=== PATIENT | male | born 1955 | race Caucasian/White ===

== ENCOUNTER 2020-07-24 09:50 | Outpatient (REF) | payer BC, SELFPAY ==
[2020-07-24 10:43] LABS: COVID-19 Test Negative (Negative)
== END 2020-07-24 09:51 | disposition home or self-care (01) ==
LOC: HO.LAB 09:50
PROVIDERS: PCP Internal Medicine; Visit Provider Internal Medicine
DX: Z20.828 Contact with and (suspected) exposure to other viral communicable diseases (principal)
CPT/HCPCS: 87635

== ENCOUNTER 2020-07-29 08:04 | Outpatient (REF) | payer BC, SELFPAY ==
[2020-07-29 08:21] LABS: COVID-19 Test Negative (Negative)
== END 2020-07-29 08:05 | disposition home or self-care (01) ==
LOC: HO.LAB 08:04
PROVIDERS: Visit Provider Internal Medicine
DX: Z20.828 Contact with and (suspected) exposure to other viral communicable diseases (principal)
CPT/HCPCS: 87635

== ENCOUNTER 2022-08-06 10:56 | Outpatient (REF) | payer OTHER, SELFPAY ==
[2022-08-06 11:20] LABS: MANUAL DIFF FLAG NO
[2022-08-06 11:45] LABS: Basophils Absolute Auto 0.1 X10*3/uL (0.0-0.2); Eosinophils Absolute Auto 0.1 X10*3/uL (0.0-0.4); Eosinophils Percent Auto 1.7 % (0-4); Hematocrit 42.1 % (42.0-52.0); Hemoglobin 14.8 g/dl (14.0-18.0); Imm Gran Abs Auto 0.02 X10*3/uL (0.00-0.03); Imm Gran Pct Auto 0.3 % (0.0-0.4); Lymphocytes Absolute Auto 1.6 X10*3/uL (1.2-4.9); Lymphocytes Percent Auto 26.6 % (20-40); Mean Corpuscular HGB Conc 35.2 g/dl (31.0-36.0); Mean Corpuscular Hemoglobin 30.6 pg (27.0-33.0); Mean Platelet Volume 10.8 fL (9.4-12.4); Monocytes Absolute Auto 0.5 X10*3/uL (0.1-1.2); Monocytes Percent Auto 8.1 % (2-11); Neutrophils Absolute Auto 3.8 x10*3/uL (2.0-8.3); Neutrophils Percent Auto 62.3 % (45-73); Platelet Count 268 X10*3/uL (160-400); Red Blood Count 4.84 X10*6/uL (4.60-5.80); Red Cell Distribution Width 12.7 % (11.0-16.0); White Blood Count 6.1 X10*3/uL (4.8-10.8)
[2022-08-06 12:43] LABS: Free T4 (Free Thyroxine) 0.88 ng/dL (0.71-1.85); Prostate Specific Antigen 1.49 ng/mL (<0.05-4.0)
[2022-08-06 12:58] LABS: Alanine Aminotransferase 36 U/L (0-40); Albumin Level 4.5 g/dL (3.5-5.0); Alkaline Phosphatase 62 U/L (39-117); Anion Gap 17 (12-20); Aspartate Amino Transferase 32 U/L (5-37); Bilirubin Total 0.6 mg/dL (0.0-1.0); Blood Urea Nitrogen 19 mg/dL (9-16); Calcium 9.8 mg/dL (8.4-10.2); Carbon Dioxide 21 mmol/L (22-29); Chloride 105 mmol/L (96-108); Cholesterol 186 mg/dL; Estimated Glomerular Filt Rate 56; Glucose Random 97 mg/dL (60-115); HDL Cholesterol 61 mg/dL; LDL Cholesterol Calculated 108 mg/dl; Potassium 4.3 mmol/L (3.3-5.1); Sodium 139 mmol/L (135-145); Total Protein 7.2 g/dL (6.5-8.0); Triglycerides 87 mg/dL
[2022-08-09 05:02] LABS: ~HepC Num1 0.13 S/CO (0.00-0.79); ~Hepatitis C Antibody Nonreactive (Nonreactive)
[2022-08-13 13:43] LABS: Chromogranin A 159 ng/mL (ADULTS: <311)
== END 2022-08-06 10:57 | disposition home or self-care (01) ==
LOC: HO.LAB 10:56
PROVIDERS: PCP Internal Medicine; Visit Provider Internal Medicine
DX: F90.9 Attention-deficit hyperactivity disorder, unspecified type (principal); R97.20 Elevated prostate specific antigen [PSA]; E74.39 Other disorders of intestinal carbohydrate absorption; E78.00 Pure hypercholesterolemia, unspecified; C17.9 Malignant neoplasm of small intestine, unspecified; Z12.5 Encounter for screening for malignant neoplasm of prostate
CPT/HCPCS: 36415; 80053; 80061; 84153; 84439; 84443; 85025; 86316; 86803

== ENCOUNTER 2022-11-24 09:00 | Outpatient (RCR) | payer OTHER, SELFPAY | END 2022-12-29 15:10 | disposition home or self-care (01) | LOC: HO.PT 09:00 | PROVIDERS: PCP Internal Medicine; Visit Provider Internal Medicine | DX: M25.512 Pain in left shoulder (principal) | CPT/HCPCS: 97033; 97110; 97112; 97140; 97162; 97530 ==

== ENCOUNTER 2022-12-02 16:54 | Outpatient (REF) | payer OTHER, SELFPAY ==
[2022-12-02 18:14] LABS: Appearance Urine Clear; Color Urine Yellow; Glucose Urine UA Negative (Negative); Leukocyte Esterase Urine Negative (Negative); Nitrite Urine Negative (Negative); Urine Blood Negative (Negative); Urine Ketones Negative (Negative); Urine Protein Negative (Neg-Trace)
[2022-12-02 18:35] LABS: Creatinine Urine 41.65 mg/dL; Microalbumin Urine < 5.0 mg/L; Total Protein Urine Random < 7 mg/dL (<12)
== END 2022-12-02 16:55 | disposition home or self-care (01) ==
LOC: HO.LAB 16:54
PROVIDERS: PCP Internal Medicine; Visit Provider Internal Medicine
DX: R79.89 Other specified abnormal findings of blood chemistry (principal)
CPT/HCPCS: 81003; 82043; 84156

== ENCOUNTER 2023-01-15 10:52 | Outpatient (REF) | payer OTHER, SELFPAY ==
[2023-01-19 14:53] LABS: Venous Lead <1.0 mcg/dL (<3.5)
== END 2023-01-15 10:53 | disposition home or self-care (01) ==
LOC: HO.LAB 10:52
PROVIDERS: Visit Provider Internal Medicine
DX: R53.83 Other fatigue (principal)
CPT/HCPCS: 82300; 83655

== ENCOUNTER 2023-03-25 15:25 | Outpatient (REF) | payer OTHER, SELFPAY ==
--- NOTE | ~2023-03-25 | US_ITS ---
EXAMINATION: US VENOUS ULTRASOUND WITH DOPPLER LOWER EXTREMITY, RIGHT CLINICAL INFORMATION: Right lower extremity edema pain and swelling COMPARISON: None available. TECHNIQUE: Ultrasound of the deep veins is performed from the hip to the calf with compression sonography and color and pulse Doppler assessment. Spectral analysis with color-flow imaging is performed. FINDINGS: There is normal venous compression and respiratory variation and augmented flow. The visualized common femoral vein, superficial femoral vein, profunda femoral vein, popliteal vein, and the trifurcation region shows no evidence of deep venous thrombosis. There is no significant popliteal fossa cyst. The contralateral left common femoral vein appears normal. If the patient's symptoms persist, followup ultrasound in 5 days 7 days might be of value to exclude proximal propagation from a non-visualized calf vein. US/US venous duplex LE RT IMPRESSION: No DVT demonstrated in the right lower extremity.
== END 2023-03-25 15:26 | disposition home or self-care (01) ==
LOC: HO.US 15:25
PROVIDERS: PCP Internal Medicine; Visit Provider Internal Medicine
DX: R60.0 Localized edema (principal)
CPT/HCPCS: 93971

== ENCOUNTER 2023-05-12 11:16 | Emergency (ER) | payer OTHER, SELFPAY ==
--- NOTE | ~2023-05-12 | XR_ITS ---
PROCEDURE: Bilateral hand x-rays. CLINICAL HISTORY: Right hand third digit and left hand fourth digit trauma TECHNIQUE: Frontal, lateral and oblique radiograph's were acquired. FINDINGS: Frontal, lateral and oblique radiographs of the right hand show no fracture, dislocation or foreign body. In particular, the third digit is intact. Frontal, lateral and oblique radiographs of the left hand show no plain film osseous, articular or soft tissue abnormalities. In particular, the left fourth finger is intact. XR/XR hand LT min 3V IMPRESSION: Unremarkable plain radiographs of both hands. In particular, no fracture, dislocation or foreign body is detected.
--- NOTE | ~2023-05-12 | XR_ITS ---
PROCEDURE: Bilateral hand x-rays. CLINICAL HISTORY: Right hand third digit and left hand fourth digit trauma TECHNIQUE: Frontal, lateral and oblique radiograph's were acquired. FINDINGS: Frontal, lateral and oblique radiographs of the right hand show no fracture, dislocation or foreign body. In particular, the third digit is intact. Frontal, lateral and oblique radiographs of the left hand show no plain film osseous, articular or soft tissue abnormalities. In particular, the left fourth finger is intact. XR/XR hand RT min 3V IMPRESSION: Unremarkable plain radiographs of both hands. In particular, no fracture, dislocation or foreign body is detected.
--- NOTE | 2023-05-12 11:39 | ED_ITS ---
HPI - General Adult General Chief complaint: Extremity Injury, Upper Stated complaint: fall ? 2 fractured fingers Time Seen by Provider: 05/12/23 11:20 Source: patient Mode of arrival: ambulatory Limitations: no limitations History of Present Illness HPI narrative: This is a 67-year-old male without significant medical history presenting to the emergency department for complaints of left 4th finger pain and right 3rd finger pain status post trip and fall yesterday while running, patient reports he ran, tripped, fell on both hands, did not hit his head, chest, abdomen or pelvis. Patient not on blood thinners. No loss of consciousness. He reports pain and swelling ever since. Worse with movement better at rest. No previous injuries to these fingers. Patient not on blood thinners. Related Data Previous Rx's Medication Instructions Recorded cephalexin 500 mg tablet 500 mg PO Q6H 10 days #40 tabs 05/12/23 Allergies Allergy/AdvReac Type Severity Reaction Status Date / Time No Known Allergies Allergy Verified 05/12/23 12:32 [No Known Allergies*] Review of Systems Review of Systems: Constitutional : No Weight loss, No Fever, No Chills, No Fatigue, No Malaise ENT/Mouth : No sore throat, No Rhinorrhea Eyes: No Eye Pain, No Swelling, No Redness Cardiovascular : No Chest Pain, No SOB, No Dyspnea on Exertion, No Orthopnea, No Edema, No Palpitations Respiratory : No Cough, No Sputum, No Wheezing Gastrointestinal : No Nausea, No Vomiting, No Diarrhea, No Constipation, No abdominal Pain, No Hematochezia, No Melena Genitourinary : No Dysuria, No Urinary Frequency, No Hematuria, Musculoskeletal : + joint pain, No Myalgias, + Joint Swelling Skin : No Skin Lesions, No rash Neuro : No Weakness, No Numbness, No Dizziness, No Headache Psych : No Anxiety/Panic, No Depression All other systems reviewed and are negative Yes all other systems are reviewed and are negative [facility] Past Medical History Attestation statement: The following information was validated with the patient. Source: old records reviewed and nursing notes reviewed Social History Social History Advance Directives: No Physical Exam ED Vital Signs: Vital Signs - 24 hr 05/12/23 11:46 Temperature 98 F Pulse Rate 80 Respiratory Rate 16 Blood Pressure 125/79 Pulse Oximetry 97 Oxygen Delivery Method Room Air BMI result Body Mass Index 25.4 Vital signs stable Appearance: Alert.? Oriented X3.? No acute distress.? Head: Normocephalic, atraumatic, no step-offs or deformities Eyes: Pupils equal, round and reactive to light.? ENT: Pharynx normal.? Neck: Normal inspection.? Neck supple.? CVS: Normal heart rate and rhythm.? Pulses normal.? Respiratory: No respiratory distress.? Breath sounds normal.? Abdomen: Soft and nontender.? Skin: Skin warm and dry.? Normal skin color.? Normal skin turgor.? Extremities 5/5 strength to bilateral upper and lower extremities full range of motion to all fingers, slight discomfort with range of motion of left 4th finger and right 3rd finger, right 3rd finger with significant edema, erythema and ecchymosis. patient's right 3rd nail bed with what appears to be some separation from skin and dry blood underneath. 2+ radial pulses equal bilateral. Capillary refill less than 2 seconds to bilateral upper extremity digits. Nor mal sensation distally. No hand drop/wrist drop. Neuro: Oriented X 3.? No motor deficit.? No sensory deficit. CN 2-12 intact Course Reevaluation(s) Reevaluation #1: X-ray unremarkable no fractures or dislocations, concern for ligamentous or tendon injury flexor tendon. Will place in a finger splint To right 3rd digit. [place] text to Dr. Cohen to make her aware of this case. Likely follow-up outpatient with hand surgeon. Patient aware of findings. Time: 13:14 Reevaluation #2: Ortho MARYANN martinez recommends encouraged ROM Time: 13:47 Reevaluation #3: Still pending response from Dr. Cohen, will reach out to patient with her response. Educated patient on diagnosis and treatment plan, answered all question, patient verbalizes understanding. At this time patient will be discharged home, advised to return with new or worsening symptoms. Educated on worrisome signs and symptoms and when to return. At this time I feel comfortab le discharge home. Medical Decision Making Medical Decision Making [facility] Narrative: [id number] 67-year-old male presents status post fall last night complaining of left and right finger pain. Physical exam significant for 5/5 strength to bilateral upper and lower extremities full range of motion to all fingers, slight discomfort with range of motion of left 4th finger and right 3rd finger, right 3rd finger with significant edema, erythema and ecchymosis. 2+ radial pulses equal bilateral. Capillary refill less than 2 seconds to bilateral upper extremity digits. Normal sensation distally. No hand drop/wrist drop. patient's right 3rd nail bed with what appears to be some separation from skin and dry blood underneath. concerns for fracture versus dislocation versus sprain versus strain. No signs of neurovascular compromise, threat to Lewis, compartment syndrome at this time. Some suspicion for possible ligament or tendon injury. Plan at this time x-ray. Patient not requesting anything for pain. Differential Diagnosis Differential Diagnoses: The differential diagnosis associated with the presentation includes concerns for fracture versus dislocation versus sprain versus strain. No signs of neurovascular compromise, threat to Lewis, compartment syndrome at this time. Some suspicion for possible ligament or tendon injury. Admission/Observation Consideration of admission/observation: Escalation of care including admission/observation considered Unlikely Independent Interpretation I performed an independent interpretation of an: Plain X-Ray Radiology Impression Discussion of test interpretation with radiology: I have reviewed the radiologist's reading. Core Measures AMI core measures followed: Yes Measure exclusions: not indicated Critical Care Time Critical Care Time Critical Care Time: Yes Total Critical Care Time: 35 Attestation: I attest to this time spent taking care of the patient, obtaining history, physical, reviewing labs, imaging, speaking to my attending, speaking to specialist. Discharge Plan Discharge Clinical Impression: Finger pain, Deformity of nail bed Patient Disposition: Home, Self-Care Additional Instructions: Take your medications as prescribed. If you were prescribed antibiotics today, it is important that you take your medication to their entirety, do not skip any doses, do not finish them early. Follow-up with your primary care provider this week. Return to the emergency department with new or worsening symptoms. Such as fevers, chills, chest pain, shortness of breath, nausea, vomiting, dizziness, headache, vision changes, lethargy In case of emergency call 911 You can take ibuprofen every 6 hours, Tylenol every 4 as needed for pain or discomfort. Please follow-up with hand specialist. XR/XR hand LT min 3V IMPRESSION: Unremarkable plain radiographs of both hands. In particular, no fracture, dislocation or foreign body is detected. Feel better! Prescriptions: New cephalexin 500 mg tablet 500 mg PO Q6H 10 Days Qty: 40 0RF Referrals: Juli Cohen MD [Physician] - 2 days Interventions: ED Discharge Assessment Last Done: 05/12/23 13:59 Discharge Date/Time: 05/12/23 14:00
[2023-05-12 11:46] VITALS: BP 125/79; PULSE 80; RESP 16; TEMP 36.6; O2SAT 97; BMI 25.4
== END 2023-05-12 14:00 | disposition home or self-care (01) ==
PROVIDERS: Emergency Provider Student in an Organized Health Care Education/Training Program; PCP Emergency Medicine
DX: L60.8 Other nail disorders (principal); M79.645 Pain in left finger(s); M79.642 Pain in left hand; M79.641 Pain in right hand
CPT/HCPCS: 73130; 99282; 99283

== ENCOUNTER 2023-06-01 07:30 | Outpatient (REF) | payer OTHER, SELFPAY ==
--- NOTE | ~2023-06-01 | XR_ITS ---
EXAMINATION: XR HAND, RIGHT CLINICAL INFORMATION: Right hand pain, attention fourth digit and fourth metacarpal COMPARISON: 05/12/2023 TECHNIQUE: PA, lateral, and oblique views of the right hand. FINDINGS: Mineralization is normal. There is no fracture or dislocation. There is moderate joint space narrowing and mild subchondral sclerosis at the first MCP joint. The other joint spaces are preserved. No focal soft tissue swelling is appreciated. In the lateral view, the fourth digit demonstrate mild hyperextension at the PIP joint and mild flexion at the DIP joint. This may be positional. Delmar-neck deformity of the finger cannot be excluded. XR/XR hand RT min 3V IMPRESSION: No fracture or dislocation. Delmar-neck deformity of the fourth finger cannot be excluded. Clinical correlation is recommended. 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
== END 2023-06-01 07:31 | disposition home or self-care (01) ==
LOC: HO.HOSX 07:30
PROVIDERS: Visit Provider Orthopaedic Surgery
DX: M20.011 Mallet finger of right finger(s) (principal)
CPT/HCPCS: 73130

== ENCOUNTER 2023-06-01 09:33 | Outpatient (AMB) | payer OTHER, SELFPAY ==
--- NOTE | 2023-06-01 09:45 | A.OFFVIS_ITS ---
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 Denies numbness or tingling. States he is having pain and swelling when bending finger. Allergies No Known Allergies [No Known Allergies*] Allergy (Verified 06/01/23 09:58) HPI N/P RT MF HPI Details Frank is a 67 year old right hand dominant man who presents for a follow up of his Right middle finger mallet deformity & left ring finger injury, after a fall, DOI: 05/12/23 while out running. 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 He was seen at the ED after his fall and was placed in a finger splint for his right middle finger In regards to his right hand, he says he has been wearing his finger splint / since his injury on 05/12/2023. He says once or twice his splint had slipped off and his finger bent slightly. In regards to his left hand, he complains primarily of some mild pain and swelli ng that is improving. He says he has some discomfort when trying to make a fist but he says his overall pain has improved after his injury. 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 Review of Systems Const All systems reviewed & are unremarkable except as noted in HPI and below Physical Exam Vital Signs: BMI result Body Mass Index 25.4 Const General: cooperative, healthy appearing and no acute distress Orientation/consciousness: patient oriented x3 HEENT Head: Yes normocephalic and Yes atraumatic Eyes EOM: EOMs intact bilaterally Resp Effort & Inspection: normal respiratory effort and able to speak in complete sentences Cardio Jugular venous distension: no JVD Skin General skin exam: turgor normal Rashes: no rashes Neuro General: patient oriented x3 Extrem Other: Evaluation of Bilateral Upper Extremity: The patient is alert, oriented, and in no acute distress Neuro: Median, Ulnar, Radial nerves motor and sensory intact and sensation is normal to the tips of all digits Vascular: Cap refill brisk ROM: He can make a fist and extend all his digits bilaterally he has his right middle finger DIP joint splinted in extension Left hand: Mild swelling in left ring finger Mild tenderness at the left ring finger PIP joint and proximal phalanx, with no instability No rotational or angular abnormality Radiographs: 3 views of the left hand from 05/12/23 were reviewed by me today in clinic. 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 Right middle finger mallet deformity, S/P fall DOI: 05/12/23 I educated him about this condition I discussed non-operative treatment options He has been 24/ splinting since his DOI, but says once or twice his splint had fallen off and his finger has bent He will continue to wear his finger splint / at this time. If he has to change or remove his splint he should keep his finger extended flat against a table or countertop He will follow up in 4 weeks, no X-rays. At that time I anticipate we will transition to 8 hour splinting daily 2. Left ring finger possible non-displaced proximal phalanx fracture vs PIP joint sprain, S/P fall DOI: 05/12/23 The patient will work on gentle ROM exercises at home We talked about the importance of activity modification. No surgical or other intervention warranted at this time Scribed for Juli Cohen MD by Diogenes Bergeron, health care / medical job titles, on 06/01/23 at 10:20 AM, EST. 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
[2023-06-01 09:59] VITALS: BMI 25.4
== END 2023-06-01 10:26 | disposition home or self-care (01) ==
PROVIDERS: PCP Emergency Medicine; Visit Provider Orthopaedic Surgery
DX: M20.011 Mallet finger of right finger(s) (principal); M79.642 Pain in left hand
CPT/HCPCS: 99203

== ENCOUNTER 2023-06-29 10:34 | Outpatient (AMB) | payer OTHER, SELFPAY ==
--- NOTE | 2023-06-29 10:38 | MHC.OFFVIS ---
Intake Vital Signs 06/29/23 10:46 Height 5 ft 10 in Weight 177 lb BMI 25.4 Intake Visit Reasons: ov- RT MF Intake Note: Frank 67 yr old male presents today for his follow up visit for his Right middle finger mallet deformity, S/P fall DOI: 05/12/23. States he continues to splint finger and has not bend at his PIP. & Left ring finger possible non-displaced proximal phalanx fracture vs PIP joint sprain, S/P fall DOI: 05/12/23. States his left ring finger is not in pain or has any concerns. Allergies No Known Allergies [No Known Allergies*] Allergy (Verified 06/29/23 10:44) HPI ov- RT MF HPI Details Frank is a 67 year old right hand dominant man who presents for a follow up of his right middle finger mallet deformity & left ring finger injury, after a fall, DOI: 05/12/23 while out running. 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 In regards to his right hand, he says he has been wearing his finger splint 25/04 since his injury on 05/12/2023. He says a few times his splint has fallen off at night and he worries his finger may have bent. He has some skin irritation which he thinks is from wearing his finger splint while wet In regards to his left hand, he says his ring finger has no pain and he was able to return to full ROM after working on exercises at home. 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 Review of Systems Const All systems reviewed & are unremarkable except as noted in HPI and below Physical Exam Vital Signs: BMI result Body Mass Index 25.4 Const General: no acute distress and alert Orientation/consciousness: patient oriented x3 Neuro General: patient oriented x3 Extrem Other: Evaluation of Bilateral Upper Extremity: The patient is alert, oriented, and in no acute distress Neuro: Median, Ulnar, Radial nerves motor and sensory intact and sensation is normal to the tips of all digits Vascular: Cap refill brisk ROM: He can make a fist and extend all his digits bilaterally He has his right middle finger DIP joint splinted in extension When the splint was removed he was noted to have a 20-25 degree mallet deformity that was easily reducible. The finger is nontender. He does have a little bit a maceration of the skin on the volar aspect of the finger as it appears his splint got wet. Left hand: Full active flexion to a fist an active extension without pain. No appreciable swelling Patient perceives left hand as doing fine. 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 Right middle finger mallet deformity, S/P fall DOI: 05/12/23 I educated him about this condition I discussed operative & non-operative treatment options He has been 25/04 splinting since his DOI, however he reports one or two occasions where his splint was removed, and says this tended to happen at night. When I had him reapply the splint, it appears he was placing it slightly distally which allowed for about 20-25 degrees of flexion at the D IP joint. Unfortunately He now has an ~20-25 degree mallet deformity when his splint is removed At this point we discussed operative and non operative treatment options. I certainly think that he can get this better with another 6 week course of 247 splinting, if he can keep the splint on, and now with the splint in a better position. He agrees that he would rather do this than have surgery. He was given new finger splints that he can switch to for hygiene purposes. He will try to make sure the finger stays dry. 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 In 6 weeks he will evaluate his finger. If he is able to maintain it in extension and has done a good job with 247 splinting he may then transition to 8 hour splinting for another 6 weeks. If on the other hand he is concerned that he still has a mallet deformity he will schedule an appointment with me sometime in September to discuss possible operative intervention. We are both hopeful that this can be avoided. 2. Left ring finger possible non-displaced proximal phalanx fracture vs PIP joint sprain, S/P fall DOI: 05/12/23 This is gone on to heal well. Full range of motion and no complaints of pain. Scribed for Juli Cohen MD by Diogenes Lubanszky, medical practice administrator, on 06/29/23 at 10:45 AM, EST. 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
[2023-06-29 10:46] VITALS: BMI 25.4
== END 2023-06-29 11:19 | disposition home or self-care (01) ==
PROVIDERS: PCP Emergency Medicine; Visit Provider Orthopaedic Surgery
DX: M20.011 Mallet finger of right finger(s) (principal)
CPT/HCPCS: 99213

== ENCOUNTER → 2023-06-29 10:34 | Outpatient (BNVA) | payer OTHER, SELFPAY | PROVIDERS: PCP Emergency Medicine; Visit Provider Orthopaedic Surgery ==

== ENCOUNTER 2024-05-02 08:29 | Outpatient (AMB) | payer OTHER, SELFPAY ==
--- NOTE | 2024-05-02 08:29 | MHC.OFFVIS ---
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 The area of the skin was prepped and draped. This was on the upper anterior chest. This measured about 1.2 cm in widest dimension. This was smooth, elevated with well-defined borders. I infiltrated the skin surrounding this with lidocaine 1%. I made the incision around the lesion using blade 15 with margins of normal-looking skin. I continued to excise the lesion including full-thickness of the skin and part of the subcutaneous layer with the blade. This was sent as a specimen. I closed the incision with full-thickness nylon 3-0 simple interrupted sutures. Dressings were applied. The procedure was completed. He tolerated procedure well. There were no immediate complications. There was minimal blood loss. [id number]-vzwkm/arms/legs 1.1-2cm Procedure code (CPT) selection complete Assessment & Plan Assessment & Plan (1) Skin lesion of chest wall: Code(s): L98.9 - Disorder of the skin and subcutaneous tissue, unspecified Category: Medical Plan: Excision was done in the office under local anesthesia. He tolerated the procedure well. He is given wound care instructions. He I will see him in the office for removal of sutures in about 2 weeks. Coding Level of Care Code Procedure Only Diagnoses Skin lesion of chest wall L98.9 CPT Codes Trunk/Arms/Legs - CPT: 96390-aryyb/arms/legs 1.1-2cm ([id number])
== END 2024-05-02 08:57 | disposition home or self-care (01) ==
PROVIDERS: PCP Emergency Medicine; Visit Provider Surgery
DX: L57.0 Actinic keratosis (principal)
CPT/HCPCS: 11402

== ENCOUNTER 2024-05-02 08:29 | Outpatient (REF) | payer OTHER, SELFPAY | END 2024-05-02 08:30 | disposition home or self-care (01) | LOC: HO.LNP 08:29 | PROVIDERS: PCP Emergency Medicine; Visit Provider Surgery | DX: L82.0 Inflamed seborrheic keratosis (principal) | CPT/HCPCS: 11402; 88304 ==

== ENCOUNTER 2025-01-31 13:03 | Outpatient (REF) | payer OTHER, SELFPAY ==
[2025-01-31 14:56] LABS: Anion Gap 13 (12-20); Blood Urea Nitrogen 17 mg/dL (9-16); Calcium 9.9 mg/dL (8.4-10.2); Carbon Dioxide 25 mmol/L (22-29); Chloride 105 mmol/L (96-108); Cholesterol 173 mg/dL (<200); Estimated Glomerular Filt Rate 60; Glucose Fasting 94 mg/dL (60-99); HDL Cholesterol 63 mg/dL (>40); LDL Cholesterol Calculated 90 mg/dL (<100); Potassium 3.7 mmol/L (3.3-5.1); Sodium 139 mmol/L (135-145); Triglycerides 100 mg/dL (<150)
[2025-01-31 15:10] LABS: Prostate Specific Antigen 3.22 ng/mL (<0.05-4.0)
[2025-02-05 15:07] LABS: Apolipoprotein B 77 mg/dL (<90)
[2025-02-07 20:54] LABS: Testosterone, Free 88.7 pg/mL (35.0-155.0); Testosterone, Total 653 ng/dL (250-1100)
== END 2025-01-31 13:04 | disposition home or self-care (01) ==
LOC: HO.LAB 13:03
PROVIDERS: PCP Internal Medicine; Visit Provider Urology
DX: E11.9 Type 2 diabetes mellitus without complications (principal); R68.82 Decreased libido; Z12.5 Encounter for screening for malignant neoplasm of prostate; Z13.6 Encounter for screening for cardiovascular disorders
CPT/HCPCS: 36415; 80048; 80061; 82172; 84153; 84402; 84403

== ENCOUNTER 2025-02-28 08:36 | Outpatient (AMB) | payer OTHER, SELFPAY ==
--- NOTE | 2025-02-28 08:39 | MHC.OFFVIS ---
Intake Visit Reasons: New patient appt. Intake Note: Patient is present for NEW PATIENT APPT Urology Medication:FINASTERIDE Antibiotic Allergy:NONE Blood Thinner:NONE Shotblast Operator Required: No Allergies No Known Allergies [No Known Allergies*] Allergy (Verified 02/28/25 08:40) HPI Comments Details: Chang is a pleasant male. He is a patient of Dr. Clinton. He is seen for the following urologic conditions - lower urinary tract symptoms - low libido Telemedicine Evaluation 15 min Consultation Doximity Norberto Video Lower urinary tract symptoms Had tried low-dose finasteride Concern regarding side effects Has been placed on daily tadalafil for bladder stability Had questions regarding use of alpha jus for nocturia. Would like to try on demand use of doxazosin. Prescription provided. 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 Review of Systems Const All systems reviewed & are unremarkable except as noted in HPI and below Reports no additional complaints Resp Reports no additional complaints GI Reports no additional complaints Reports as per HPI Musc Reports no additional complaints Physical Exam Telemedicine evaluation Appropriate responses Regular breathing rate and rhythm HEENT Head: Yes normal to inspection Ears: hearing grossly normal bilaterally Eyes General: appearance normal, both eyes and all related structures Neck Neck: Yes normal visual inspection Chest Chest palpation & inspection: normal inspection of the chest Resp Effort & Inspection: normal respiratory effort and able to speak in complete sentences Telehealth Telehealth Location of provider rendering services: practice address Location of patient: address on file Patient Identification confirmed using: Name, : Yes Telehealth method: voice only Patient verbally consented to treatment: Yes Patient verbally consented to billing insurance company: Yes Patient informed of any privacy concerns related to visit: Yes Assessment & Plan Assessment & Plan (1) Bladder outlet obstruction: Code(s): N32.0 - Bladder-neck obstruction Category: Medical (2) Low libido: Code(s): R68.82 - Decreased libido Category: Medical Plan Initiate tadalafil Trial doxazosin Repeat PSA in six-month Orders: Orders Prostate Specific Antigen 6 Months N32.0 - Bladder-neck obstruction Medications: New doxazosin 1 mg PO BEDTIME 30 tabs 1RF 30 days N31.9 - Neuromuscular dysfunction of bladder, unspecified, N32.0 - Bladder-neck obstruction tadalafil 5 mg PO DAILY 90 tabs 1RF sexual activity 90 days N32.0 - Bladder-neck obstruction, N52.01 - Erectile dysfunction due to arterial insufficiency Patient Instructions: This note is constructed using voice recognition software. While every effort has been made to ensure accuracy emergency medical technician errors may have been included. Imaging studies, laboratory and physical exam results were discussed and reviewed in detail. No major barriers to patient understanding were identified. An opportunity to ask questions regarding the treatment plan was provided. All questions were answered. The patient expressed understanding and agreement with the above treatment plan. The patient is aware they should contact our office by phone for worsening of their current condition or the appearance of new urologic symptoms. Compliance is encouraged with any medications and followup testing that is ordered. It is a privilege to participate in the urologic care of your patient. If you have any questions or concerns regarding treatment for the above conditions, or other urologic issues, please do not hesitate to contact me. The office telephone contact is [phone]. Sincerely, Dr Christ Tariq MD, MAGGIE [facility] - Urology Compassionate Specialist Care for the Genitourinary System Coding Level of Care Code Tele New Pt Level 4 (66286) Diagnoses Bladder outlet obstruction N32.0 Low libido R68.82
== END 2025-02-28 10:14 | disposition home or self-care (01) ==
LOC: HO.HUSH 08:36
PROVIDERS: PCP Internal Medicine; Visit Provider Urology
DX: N32.0 Bladder-neck obstruction (principal); R68.82 Decreased libido
CPT/HCPCS: 99204

== ENCOUNTER 2025-05-02 16:13 | Outpatient (REF) | payer OTHER, SELFPAY ==
[2025-05-03 10:50] LABS: Lyme Abs Screen <0.90 index
== END 2025-05-02 16:14 | disposition home or self-care (01) ==
LOC: HO.LAB 16:13
PROVIDERS: Visit Provider Urology
DX: Z01.84 Encounter for antibody response examination (principal); L98.9 Disorder of the skin and subcutaneous tissue, unspecified
CPT/HCPCS: 36415; 86617; 86618; 86753

== ENCOUNTER 2025-08-06 16:09 | Outpatient (REF) | payer OTHER, SELFPAY ==
[2025-08-06 17:50] LABS: Prostate Specific Antigen 2.68 ng/mL (<0.05-4.0)
--- OUTSIDE RECORDS SUMMARY | 2025-08-06 18:31 | XMS_ITS | Encounter Summary ---
Author Organization [facility] Address [address] [place] [address] Phone Care Team Providers Care Low Pressure Boiler Operator Name Role Phone Lemuel Clinton MD Primary Care Provider [phone] Encounter Details Date Type Department Care Team (Late st Contact Info) Description 11/07/2021 Procedure Pass [facility], [address] [address] Social History Tobacco Use Types Packs/Day Years Used Date Smoking Tobacco: Never Smokeless Tobacco: Never Alcohol Use Standard Drinks/Week Comments Yes 0 (1 standard drink = 0.6 oz pur e alcohol) sometimes, light drinker Sex and Gender Information Value Date Recorded Sex Assigned at Not on file Legal Sex Male 8:32 PM EDT Gender Identity Not on file Sexual Orientation Not on file documented as of this encounter Functional Status * Calculated C-SSRS Risk Score (Lifetime/Recent) Answer Date of Assessment Author No Risk Indicated 11/07/2021 3:14 PM Mary Blanco RN * [place] Suicide Severity Rating Scale (Screener/Recent Self-Report) Question Answer Date of Assessment Author 1. Wish to be (Past 1 Month) No 022 3:14 PM Alida Blanco RN 2. Non-Specific Active Suici milind Thoughts (Past 1 Month) No 11/07/2021 3:14 PM Obed Blanco RN 6. Suicidal Behavior (Lifetime) No 3:14 PM Alida Blanco RN documented as of this encounter Plan of Treatment Not on file documented as of this encounter Visit Diagnoses Not on filedocumented in this encounter Care Teams Low Pressure Boiler Operator Relationship Specialty Start Date End Date Lemuel Clinton MD [address] [place] [id number] PCP - General Internal Medicine 04/16/18 documented as of this encounter Additional Source Comments The information contained in this document represents components of the legal health record. It is not the complete legal health record.[facility]
--- OUTSIDE RECORDS SUMMARY | 2025-08-06 18:31 | XMS_ITS | Encounter Summary ---
Author Organization [facility] Address [facility] [address] [place] [address] Phone Care Team Providers Care Vocational Rehabilitation Consultant Name Role Phone Lemuel Clinton MD Primary Care Provider [phone] Encounter Details Date Type Department Care Team (Late st Contact Info) Description 11/07/2021 Procedure Pass [facility], Ct Scan - [address] [address] Social History Tobacco Use Types Packs/Day Years [...] 11/07/2021 3:14 PM Mary Blanco RN * [facility] Suicide Severity Rating Scale (Screener/Recent Self-Report) Question [...] on filedocumented in this encounter Care Teams Vocational Rehabilitation Consultant Relationship Specialty Start Date End Date Lemuel Clinton MD [address] [place] [address] PCP - General Internal Medicine 04/16/18 documented as of this encounter Additional Source Comments The information contained in this document represents components of the legal health record. It is not the complete legal health record.[facility]
--- OUTSIDE RECORDS SUMMARY | 2025-08-06 18:31 | XMS_ITS | Encounter Summary ---
Author Organization [facility] Address Count includes the [facility] [address] [place] [address] Phone Care Team Providers Care Unit Control Worker Name Role Phone Lemuel Clinton MD Primary Care Provider [phone] Encounter Details Date Type Department Care Team (Late st Contact Info) Description 11/07/2021 Procedure Pass [facility], Ct Scan - [address] [address] Social History Tobacco Use Types Packs/Day Years [...] 11/07/2021 3:14 PM Mary Blanco RN * [place] Suicide Severity Rating Scale (Screener/Recent Self-Report) Question [...] on filedocumented in this encounter Care Teams Unit Control Worker Relationship Specialty Start Date End Date Lemuel Clinton MD [address] [place] [address] PCP - General Internal Medicine 04/16/18 documented as of this encounter Additional Source Comments The information contained in this document represents components of the legal health record. It is not the complete legal health record.[facility]
--- OUTSIDE RECORDS SUMMARY | 2025-08-06 18:31 | XMS_ITS | Clinical Summary ---
Author Organization [facility] Address [address] [facility] [address] [place] [address] Phone Care Team Providers Care Zinc Miner Name Role Phone Lemuel Clinton MD Primary Care Provider [phone] Allergies No known active allergies Medications nortriptyline (PAMELOR) 25 MG capsule Take 25 mg by mouth nightly at bedtime. Active finasteride (PROPECIA) 1 mg tablet Take 1 mg by mouth nightly at bedtime. Active rosuvastatin (CRESTOR) 5 MG tablet Take 5 mg by mouth nightly at bedtime. Active LORazepam (ATIVAN) 0.5 MG tablet Take 0.5 mg by mouth every 8 (eight) hours as needed for anxiety. Active zolpidem (AMBIEN) 5 MG tablet Take 5 mg by mouth nightly at bedtime as needed for sleep. Active amoxicillin (AMOXIL) 500 MG capsule Take 500 mg by mouth 3 (three) times a day. Active Active Problems Problem Noted Date Diagnosed Date Stroke-like symptoms 11/07/2021 Assessment & Plan (11/07/2021 2:34 PM EST): The patient's clinical picture seems to be more consistent with a toxic- metabolic encephalopathy as opposed to a focal stroke. Current NIHSS score is 3 for abnormal vkftdx-xn-jdji testing on both sides and mildly slurred speech. Metabolic work- up thus far is unremarkable. No fever or obvious infectious etiology for symptoms. Head CT without acute pathology. CT angiogram without large vessel stenosis or retrievable thrombus. 1. Observation on the medical floor, continuous EKG monitoring, neurochecks every 4 hours 2. MRI of the brain to evaluate for acute ischemia 3. Echocardiogram with bubble study to evaluate for valvular disease, cardiomyopathy, thrombus, or PFO 4. Check ESR/CRP, TSH, coags, ammonia level, and VBG 5. Check urinalysis with culture, and urine toxicology 6. Continue aspirin 325 mg daily 7. Start atorvastatin 80 mg nightly, current LDL 100 (on Crestor) 8. Permissive hypertension over the first 48 hours (SBP goal: <200, hold antihypertensives while SBP within goal); plan to gradually lower to long-term goal <140/90 after initial 48 hours 9. Teleneurology input appreciated, will follow up after above studies are resulted 10. PT/OT evaluations 11. The patient has passed a bedside swallow evaluation and will be allowed to have a cardiac prudent diet 12. Hold all sedating medications Depression Assessment & Plan (11/07/2021 2:28 PM EST): We will hold all potentially sedating medications this evening. His current mood is stable with no SI or HI. No agitation. Family History Medical History Relation Comments Heart disease Mother Relation Status Comments Mother Social History Tobacco Use Types Packs/Day Years Used Date Smoking Tobacco: Never Smokeless Tobacco: Never Alcohol Use Standard Drinks/Week Comments Yes 0 (1 standard drink = 0.6 oz pur e alcohol) sometimes, light drinker Education Answer Date Recorded Are you interested in more education? Not on mary ann e 01/28/2023 Are you concerned about learning? Not on file 01/28/2023 No 01/28/2023 No 01/28/2023 Digital Access Answer Date Recorded No 02/25/2023 No 02/25/2023 No 02/25/2023 Reliable internet access at home? Not on file 02/25/2023 Device with a working camera? Not on file Sex and Gender Information Value Date Recorded Sex Assigned at Not on file Legal Sex Male 8:32 PM EDT Gender Identity Not on file Sexual Orientation Not on file Last Filed Vital Signs Vital Sign Reading Time Taken Comments Blood Pressure 98/58 11/08/2021 11:32 AM EST Pulse 53 11/08/2021 11:32 AM EST Temperature 36 C (96.8 F) 11/08/2021 11:32 AM EST Respiratory Rate 16 11/08/2021 11:32 AM EST Oxygen Saturation 98% 11/08/2021 11:32 AM EST Inhaled Oxygen Concentration - - Weight 79.4 kg (175 lb) 02/09/2021 7:10 PM EDT Height 177.8 cm (5' 10 ) 02/09/2021 7:10 PM EDT Body Mass Index 25.11 02/09/2021 7:10 PM EDT Plan of Treatment Health Maintenance Due Date Last Done Comments Adult Td,Tdap Booster 1957 DEPRESSION SCREENING 1969 HEPATITIS C SCREENING 1975 COLOGUARD 2002 COLONOSCOPY 2002 COLORECTAL CANCER SCREENING 2002 FIT TEST 2002 FOBT 2002 SIGMOIDOSCOPY 2002 VIRTUAL COLONOSCOPY 2002 PNEUMOCOCCAL VACCINES (50+ years) (1 of 1 - PCV) 2007 ZOSTER VACCINES (2 of 2) 11/29/2019 10/04/2019, 09/04 INFLUENZA VACCINE (#1) 2025 , 08/23/2019, 08/07/2018, Additional history exists COVID-19 VACCINE ( - 2024- season) 2025 05/06/2021, 10/10/2020, 09/18/2020 LIPID PANEL 11/07/2026 11/07/2021 RSV VACCINE (1 - 1-dose 75+ series) 2032 SMOKING STATUS SCREENING (Once After 26 Yrs) Completed 11/07/2021 HEPATITIS A VACCINES Aged Out No long er eligible based on patient's age to complete this topic HIB VACCINES Aged Out No longer eligi ble based on patient's age to complete this topic MENINGOCOCCAL VACCINES (ACWY) Aged Out No longer eligible based on patient's age to complete this topic MENINGOCOCCAL VACCINES (B) Aged Out N o longer eligible based on patient's age to complete this topic Medical Devices Not on file Procedures Procedure Name Priority Date/Time Associated Diagnosis Comments LIPID PANEL STAT 11/07/2021 11:09 AM EST from Last 3 Months or Most Recently Relevant to Health Maintenance Results * (ABNORMAL) Lipid panel (11/07/2021 11:09 AM EST) HDL 56 mg/dL [facility] Comment: Interpretation <40 mg/dL: Low HDL cholesterol (major risk factor for CHD) Greater than or equal to 60 mg/dL: High HDL cholesterol ( negative risk factor for CHD) HDL - cholesterol is affected by a number of factors, e.g. smoking, excerise, hormones, sex and age. CHOLESTEROL 174 0 - 240 mg/dL [facility] TRIGLYCERIDES 90 30 - 160 mg/dL [facility] LDL 100 50 - 129 mg/dL [facility] Comment: LDL levels in terms of risk for coronary heart disease: <100 mg/dL: Optimal 100-129 mg/dL: Near or above optimal 130-159 mg/dL: Borderline high 160-189 mg/dL: High >190 mg/dL: Very High CARDIAC RISK RATIO 3.1(L) 3.4 - 5.0 C [facility] Blood 11/07/2021 11:0 9 AM EST 11/07/2021 11:27 AM EST us Stiven Sparks MD LAB BLOOD BKR ORDERABLES F inal Result Performing Organization Address City/State/[facility] Co de Phone Number [facility] [address] [place] [address] from Last 3 Months or Most Recently Relevant to Health Maintenance Insurance [employer]EF[employer] BENEFITS ADMINISTRATORS [employer]IST[employer] Advance Directives For more information, please contact: [phone] (9AM - 5PM [facility], Tuesday-Tuesday) Documents on File Type Date Recorded Patient Level Vial Setter Expl anation Healthcare Proxy 11/09/2021 4:52 PM * Full Code (Latest Code Status on File) Date Activated Date Inactivated Comments 11/07/2021 2:53 PM Question Answer Comments Code Status Confirmed With: PatientFamily Care Teams Zinc Miner Relationship Specialty Start Date End Date Lemuel Clinton MD [address] [place] [address] PCP - General Internal Medicine 04/16/18 Additional Source Comments The information contained in this document represents components of the legal health record. It is not the complete legal health record.[facility]
== END 2025-08-06 16:10 | disposition home or self-care (01) ==
LOC: HO.LAB 16:09
PROVIDERS: PCP Internal Medicine; Visit Provider Urology
DX: N32.0 Bladder-neck obstruction (principal); Z12.5 Encounter for screening for malignant neoplasm of prostate
CPT/HCPCS: 36415; 84153

== ENCOUNTER 2025-08-27 08:30 | Outpatient (AMB) | payer OTHER, SELFPAY ==
--- NOTE | 2025-08-27 08:31 | A.OFFVIS_ITS ---
Intake Visit Reasons: 6M PSA/Med Review Intake Note: Patient is present for 6 mo follow up Urology Medication:FINASTERIDE,TADALAFIL, DOXAZOSIN Antibiotic Allergy:NONE Blood Thinner:NONE Labs done : 08/06/25 PSA 2.68 Watchmaking Teacher Required: No Accompanied by: Self / Same As Patient Allergies No Known Allergies (No Known Allergies*) Allergy (Verified 08/27/25 08:32) HPI Comments Details: Chang is a pleasant male. He is a patient of Dr. Clinton. He is seen for the following urologic conditions - lower urinary tract symptoms - low libido Telemedicine Evaluation 15 min Consultation WO Funding Norberto Video Follow-up trial tadalafil with doxazosin for bladder stability and nocturia Did not use doxazosin Has been using tadalafil with moderate success Has been trying to danelle low-dose finasteride for balance between efficacy and side effects Discussed potential benefit of procedure such as transurethral incision of the prostate He will try adjusting medications for result Six-month follow-up Lower urinary tract symptoms Had tried low-dose finasteride Concern regarding side effects Daily tadalafil for bladder stability Low-dose doxazosin Laboratories - 02/24 T653, PSA 3.2, 08/27 2.6 Normal range testosterone Encourage restorative sleep [facility] Medical History (Updated 01/22/25 @ 14:25 by Christ Tariq MD) Skin lesion of chest wall Social History Current occupational status: employed 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 Review of Systems Const All systems reviewed & are unremarkable except as noted in HPI and below Reports no additional complaints Resp Reports no additional complaints GI Reports no additional complaints Reports as per HPI Musc Reports no additional complaints Physical Exam Telemedicine evaluation Appropriate responses Regular breathing rate and rhythm HEENT Head: Yes normal to inspection Ears: hearing grossly normal bilaterally Eyes General: appearance normal, both eyes and all related structures Neck Neck: Yes normal visual inspection Chest Chest palpation & inspection: normal inspection of the chest Resp Effort & Inspection: normal respiratory effort and able to speak in complete sentences Telehealth Telehealth Telehealth Platform: WO Funding Location of provider rendering services: practice address Location of patient: address on file Patient Identification confirmed using: Name, : Yes Telehealth method: video Patient verbally consented to treatment: Yes Patient verbally consented to billing insurance company: Yes Patient informed of any privacy concerns related to visit: Yes Minutes spent on Phone/Video with Pt.: 15 Assessment & Plan Assessment & Plan (1) Bladder outlet obstruction: Code(s): N32.0 - Bladder-neck obstruction Category: Medical (2) Low libido: Code(s): R68.82 - Decreased libido Category: Medical Plan Continue medication adjustment Six-month follow-up Medications: Refilled tadalafil 5 mg PO DAILY 90 tabs 1RF sexual activity 90 days N32.0 - Bladder- neck obstruction, N52.01 - Erectile dysfunction due to arterial insufficiency Patient Instructions: This note is constructed using voice recognition software. While every effort collins s been made to ensure accuracy flipping machine operator errors may have been included. Imaging studies, laboratory and physical exam results were discussed and reviewed in detail. No major barriers to patient understanding were identified. An opportunity to ask questions regarding the treatment plan was provided. All questions were answered. The patient expressed understanding and agreement with the above treatment plan. The patient is aware they should contact our office by phone for worsening of their current condition or the appearance of new urologic symptoms. Compliance is encouraged with any medications and followup testing that is ordered. It is a privilege to participate in the urologic care of your patient. If you have any questions or concerns regarding treatment for the above conditions, or other urologic issues, please do not hesitate to contact me. The office telephone contact is [phone]. Sincerely, Dr Christ Tariq MD, MAGGIE [facility] - Urology Compassionate Specialist Care for the Genitourinary System Coding Level of Care Code Tele Est Pt Level 3 ([address]) Diagnoses Bladder outlet obstruction N32.0 Low libido R68.82
--- OUTSIDE RECORDS SUMMARY | 2025-08-27 08:48 | XMS_ITS | Encounter Summary ---
Author Organization [facility] Address [facility] [address] [place] [address] Phone Care Team Providers Care Injection Molding Operator Name Role Phone Lemuel Clinton MD Primary Care Provider [phone] Encounter Details Date Type Department Care Team (Late st Contact Info) Description 11/07/2021 Procedure Pass [facility], Ct Scan - [address] [address] Social History Tobacco Use Types Packs/Day Years [...] 11/07/2021 3:14 PM Mary Blanco RN * [place] Suicide Severity Rating Scale (Screener/Recent Self-Report) Question [...] on filedocumented in this encounter Care Teams Injection Molding Operator Relationship Specialty Start Date End Date Lemuel Clinton MD [address] [place] [phone] PCP - General Internal Medicine 04/16/18 documented as of this encounter Additional Source Comments The information contained in this document represents components of the legal health record. It is not the complete legal health record.[facility]
--- OUTSIDE RECORDS SUMMARY | 2025-08-27 08:48 | XMS_ITS | Encounter Summary ---
Author Organization [facility] Address [address] [place] [address] Phone Care Team Providers Care Student Loan Counselor Name Role Phone Lemuel Clinton MD Primary Care Provider [phone] Encounter Details Date Type Department Care Team (Late st Contact Info) Description 11/07/2021 Procedure Pass [facility], [address] [address] Social History Tobacco Use Types Packs/Day Years [...] 11/07/2021 3:14 PM Mary Blanco RN * [place] Suicide Severity Rating Scale (Screener/Recent Self-Report) Question [...] on filedocumented in this encounter Care Teams Student Loan Counselor Relationship Specialty Start Date End Date Lemuel Clinton MD [address] [place] [phone] PCP - General Internal Medicine 04/16/18 documented as of this encounter Additional Source Comments The information contained in this document represents components of the legal health record. It is not the complete legal health record.[facility]
--- OUTSIDE RECORDS SUMMARY | 2025-08-27 08:48 | XMS_ITS | Clinical Summary ---
Author Organization [facility] Address [email or web address] [facility] [address] [place] [address] Phone Care Team Providers Care Bilingual Customer Service Specialist Name Role Phone Lemuel Clinton MD Primary Care Provider Allergies No known active allergies Medications nortriptyline [...] Current NIHSS score is 3 for abnormal onoasw-cs-wret testing on both sides and mildly slurred [...] (11/07/2021 11:09 AM EST) HDL 56 mg/dL [facility] Comment: Interpretation <40 mg/dL: Low HDL cholesterol (major risk factor for CHD) Greater than or equal to 60 mg/dL: High HDL cholesterol ( negative risk factor for CHD) HDL - cholesterol is affected by a number of factors, e.g. smoking, excerise, hormones, sex and age. CHOLESTEROL 174 0 - 240 mg/dL [facility] TRIGLYCERIDES 90 30 - 160 mg/dL [facility] LDL 100 50 - 129 mg/dL [facility] Comment: LDL levels in terms of risk for coronary heart disease: <100 mg/dL: Optimal 100-129 mg/dL: Near or above optimal 130-159 mg/dL: Borderline high 160-189 mg/dL: High >190 mg/dL: Very High CARDIAC RISK RATIO 3.1(L) 3.4 - 5.0 C [facility] Blood 11/07/2021 11:0 9 AM EST 11/07/2021 11:27 AM EST us Stiven Sparks MD LAB BLOOD BKR ORDERABLES F inal Result Performing Organization Address City/State/[facility] Co de Phone Number [facility] [address] [place] [address] from Last 3 Months or Most Recently Relevant to Health Maintenance Insurance [employer] B[employer]MIN[employer] Advance Directives For more information, please contact: [phone] (9AM - 5PM [facility], Tuesday-Tuesday) Documents on File Type Date Recorded Patient Hand Embroiderer Expl anation Healthcare Proxy 11/09/2021 4:52 PM * Full Code (Latest Code Status on File) Date Activated Date Inactivated Comments 11/07/2021 2:53 PM Question Answer Comments Code Status Confirmed With: PatientFamily Care Teams Bilingual Customer Service Specialist Relationship Specialty Start Date End Date Lemuel Clinton MD [address] [place] [id number] PCP - General Internal Medicine 04/16/18 Additional Source Comments The information contained in this document represents components of the legal health record. It is not the complete legal health record.[facility]
--- OUTSIDE RECORDS SUMMARY | 2025-08-27 08:49 | XMS_ITS | Encounter Summary ---
Author Organization [facility] Address [facility] [address] [place] [address] Phone Care Team Providers Care Creative Services Writer Name Role Phone Lemuel Clinton MD Primary Care Provider [phone] Encounter Details Date Type Department Care Team (Late st Contact Info) Description 11/07/2021 Procedure Pass [facility], Ct Scan - [address] [address] Social History Tobacco Use Types Packs/Day Years [...] No Risk Indicated 11/07/2021 3:14 PM Mary Blnaco RN * Victor Suicide Severity Rating Scale (Screener/Recent Self-Report) Question [...] on filedocumented in this encounter Care Teams Creative Services Writer Relationship Specialty Start Date End Date Lemuel Clinton MD [address] [place] [id number] PCP - General Internal Medicine 04/16/18 documented as of this encounter Additional Source Comments The information contained in this document represents components of the legal health record. It is not the complete legal health record.[facility]
== END 2025-08-27 10:12 | disposition home or self-care (01) ==
LOC: HO.HUSH 08:30
PROVIDERS: PCP Internal Medicine; Visit Provider Urology
DX: N32.0 Bladder-neck obstruction (principal); R68.82 Decreased libido
CPT/HCPCS: 99213

== ENCOUNTER 2025-09-25 16:07 | Outpatient (REF) | payer OTHER, SELFPAY ==
--- NOTE | ~2025-09-25 | MR_ITS ---
EXAMINATION: MR SHOULDER WITHOUT CONTRAST, RIGHT CLINICAL INFORMATION: Nonspecific derangement. Patient reports pain, decreased range of motion, history of injury. Patient reports prior tear repair 12 years ago. COMPARISON: None available. TECHNIQUE: MRI of the shoulder without contrast was performed on a high-field scanner. FINDINGS: ROTATOR CUFF: Postsurgical changes in the lateral humeral head from prior rotator cuff repair. Postsurgical changes with foci of susceptibility artifact in the overlying soft tissue. Supraspinatus: Moderate supraspinatus tendinosis. Thinning and bursal surface irregularity of the anterior tendon measuring 1 x 0.8 cm, could represent postsurgical result, bursal sided high-grade tear. Infraspinatus: Moderate tendinosis. There is T2 bright signal in the distal mid tendon measuring 1.4 x 1.2 cm (AP x ML) consistent with an articular sided intermediate/high grade tear. There is otherwise articular and bursal sided irregularity of the tendon. Teres minor is intact. Subscapularis: Mild tendinosis Mild supraspinatus muscle atrophy. BICEPS: The proximal intra-articular long head biceps tendon is not clearly visualized, which could represent postsurgical result, tendon tearing. CORACOACROMIAL ARCH: The undersurface of the acromion is flat with no subacromial spur. Small subacromial subdeltoid bursal fluid. LABRUM/CAPSULE: Posterior labrum degeneration and fraying/ill-defined tear. GLENOHUMERAL JOINT/MARROW: Mild glenohumeral arthritis. No acute fracture. Moderate effusion with synovitis/debris. No axillary lymphadenopathy. MR/MR shoulder RT wo con IMPRESSION: * Postsurgical changes of prior rotator cuff surgery in the humeral head and soft tissues. * Moderate supraspinatus tendinosis. Abnormal findings in the distal anterior tendon measuring 1 x 0.8 cm, could represent postsurgical results, bursal sided high-grade tear, or a combination of these. * Moderate infraspinatus tendinosis, with articular/bursal sided irregularity. Abnormal 1.4 x 1.2 cm T2 bright suspicious for an intermediate/high grade articular sided partial tear. * Mild subscapularis tendinosis. *Nonvisualization long head biceps tendon could be related to postsurgical result, tendon tearing. *Posterior labrum degenerative fraying/ill-defined tear. *Mild glenohumeral joint arthritis.. Moderate effusion with synovitis/debris. Electronically signed by: Carlos Barth MD 09/27/2025 10:56 AM MIC
--- OUTSIDE RECORDS SUMMARY | 2025-09-25 16:10 | XMS_ITS | Encounter Summary ---
Author Organization [facility] Address [address] [place] [address] Phone Care Team Providers Care Semiconductor Technician Name Role Phone Lemuel Clinton MD Primary Care Provider [phone] Encounter Details Date Type Department Care Team (Late st Contact Info) Description 11/07/2021 Procedure Pass [facility], [address] [address] Social History Tobacco Use Types Packs/Day Years [...] on file documented as of this encounter Plan of Treatment Not on file documented as of this encounter Visit Diagnoses Not on filedocumented in this encounter Care Teams Semiconductor Technician Relationship Specialty Start Date End Date Lemuel Clinton MD [address] [place] [address] PCP - General Internal Medicine 04/16/18 documented as of this encounter Additional Source Comments The information contained in this document represents components of the legal health record. It is not the complete legal health record.[facility]
--- OUTSIDE RECORDS SUMMARY | 2025-09-25 16:10 | XMS_ITS | Encounter Summary ---
Author Organization [facility] Address [address] [place] [address] Phone Care Team Providers Care Radioisotope Production Operator Name Role Phone Lemuel Clinton MD Primary Care Provider [phone] Encounter Details Date Type Department Care Team (Late st Contact Info) Description 11/07/2021 Procedure Pass [facility], Ct Scan - [address] [address] Social History Tobacco Use Types Packs/Day Years [...] on filedocumented in this encounter Care Teams Radioisotope Production Operator Relationship Specialty Start Date End Date Lemuel Clinton MD [address] [place] [address] [place] [address] PCP - General Internal Medicine 04/16/18 documented as of this encounter Additional Source Comments The information contained in this document represents components of the legal health record. It is not the complete legal health record.[facility]
--- OUTSIDE RECORDS SUMMARY | 2025-09-25 16:10 | XMS_ITS | Clinical Summary ---
Author Organization [facility] Address [address] [place] [address] Care Team Providers Care Material Man Name Role Phone Unavailable Primary Care Provider Unavailabl e Social History Tobacco Use Types Packs/Day Years Used Date Smoking Tobacco: Never Assessed Sex and Gender Information Value Date Recorded Sex Assigned at Not on file Legal Sex Male 3:52 PM EST Gender Identity Not on file Sexual Orientation Not on file Plan of Treatment Not on file
--- OUTSIDE RECORDS SUMMARY | 2025-09-25 16:10 | XMS_ITS | Encounter Summary ---
Author Organization [facility] Address [address] [place] [address] Phone Care Team Providers Care Tafe Teacher Name Role Phone Lemuel Clinton MD Primary Care Provider [phone] Encounter Details Date Type Department Care Team (Late st Contact Info) Description 11/07/2021 Procedure Pass [facility], Ct Scan - [address] [address] Social History Tobacco Use Types Packs/Day Years [...] on filedocumented in this encounter Care Teams Tafe Teacher Relationship Specialty Start Date End Date Lemuel Clinton MD [address] [place] [address] [place] [address] PCP - General Internal Medicine 04/16/18 documented as of this encounter Additional Source Comments The information contained in this document represents components of the legal health record. It is not the complete legal health record.[facility]
--- OUTSIDE RECORDS SUMMARY | 2025-09-25 16:10 | XMS_ITS | Clinical Summary ---
Author Organization [facility] Address [address] [facility] [address] [place] [address] Phone Care Team Providers Care Bilingual Medical Receptionist Name Role Phone Lemuel Clinton MD Primary [...] Current NIHSS score is 3 for abnormal vozebj-uk-jsae testing on both sides and mildly slurred [...] (11/07/2021 11:09 AM EST) HDL 56 mg/dL [facility] Comment: Interpretation <40 mg/dL: Low HDL cholesterol (major risk factor for CHD) Greater than or equal to 60 mg/dL: High HDL cholesterol ( negative risk factor for CHD) HDL - cholesterol is affected by a number of factors, e.g. smoking, excerise, hormones, sex and age. CHOLESTEROL 174 0 - 240 mg/dL [facility] TRIGLYCERIDES 90 30 - 160 mg/dL [facility] LDL 100 50 - 129 mg/dL [facility] Comment: LDL levels in terms of risk for coronary heart disease: <100 mg/dL: Optimal 100-129 mg/dL: Near or above optimal 130-159 mg/dL: Borderline high 160-189 mg/dL: High >190 mg/dL: Very High CARDIAC RISK RATIO 3.1(L) 3.4 - 5.0 C [facility] Blood 11/07/2021 11:0 9 AM EST 11/07/2021 11:27 AM EST us Stiven Sparks MD LAB BLOOD BKR ORDERABLES F inal Result Performing Organization Address City/State/[facility] Co de Phone Number [facility] [address] [place] [address] from Last 3 Months or Most Recently Relevant to Health Maintenance Insurance [employer]ENEF[employer]MINISTRAT[employer]MINISTRAT[employer] ADMINISTRAT[employer] Advance Directives For more information, please contact: [phone] (9AM - 5PM [facility], Tuesday-Tuesday) Documents on File Type Date Recorded Patient Negotiator Expl anation Healthcare Proxy 11/09/2021 4:52 PM * Full Code (Latest Code Status on File) Date Activated Date Inactivated Comments 11/07/2021 2:53 PM Question Answer Comments Code Status Confirmed With: PatientFamily Care Teams Bilingual Medical Receptionist Relationship Specialty Start Date End Date Lemuel Clinton MD [address] [place] [id number] PCP - General Internal Medicine 04/16/18 Additional Source Comments The information contained in this document represents components of the legal health record. It is not the complete legal health record.[facility]
== END 2025-09-25 16:08 | disposition home or self-care (01) ==
LOC: HO.MRI 16:07
PROVIDERS: Visit Provider Internal Medicine
DX: M24.811 Other specific joint derangements of right shoulder, not elsewhere classified (principal); M25.511 Pain in right shoulder
CPT/HCPCS: 73221

== ENCOUNTER → 2025-09-25 16:18 | Outpatient (BNV) | payer OTHER, SELFPAY | PROVIDERS: Visit Provider Radiology Diagnostic Ultrasound | DX: M75.111 Incomplete rotator cuff tear or rupture of right shoulder, not specified as traumatic (principal); M67.813 Other specified disorders of tendon, right shoulder | CPT/HCPCS: 73221 ==